=== PATIENT | female | born 1990 | race American Indian/Alaskan Native ===

== ENCOUNTER 2016-11-01 07:48 | Day surgery (SDC) | payer BC ==
[~2016-11-01 07:48] MED LIST: ANCEF/STERILE WATER 2 GM/20 ML IV NR
[2016-11-01] MEDS ORDERED: PEPCID PO NR (08:00)
[2016-11-01] MEDS ORDERED: LACTATED RINGERS 1,000 ML IV SCH (08:00)
[2016-11-01] MEDS ORDERED: VERSED IV NR (08:00)
--- NOTE | 2016-11-01 10:19 | Anesthesia Day of Surgery ---
Anesthesia Day of Surgery - Day of Surgery Patient Examined: Yes Patient H&P Reviewed: Yes Patient is NPO: Yes
--- NOTE | 2016-11-01 10:21 | Anesthesia Consultation ---
Anesthesia Consult and Med Hx Date of service: 11/01/16 - Airway Anesthetic Teeth Evaluation: Good ROM Head & Neck: Adequate Mental/Hyoid Distance: Adequate Mallampati Class: Class II Intubation Access Assessment: Probably Good - Pulmonary Exam CTA: Yes - Cardiac Exam Cardiac Exam: RRR - Pre-Operative Health Status ASA Pre-Surgery Classification: ASA2 Proposed Anesthetic Plan: General - Pulmonary Hx Smoking: No Hx Asthma: No - Cardiovascular System Hx Hypertension: No Hx Heart Attack/AMI: No - Central Nervous System Hx Seizures: No CVA: No - Gastrointestinal Hx Gastroesophageal Reflux Disease: Yes (occasional, food related, nexium sometimes) - Endocrine Hx Renal Disease: No Hx Liver Disease: No Hx Non-Insulin Dependent Diabetes: No - Hematic Hx Sickle Cell Disease: No - Other Systems Hx Obesity: Yes - Additional Comments Anesthesia Medical History Comments: NAC, no previous sx, had Endoscopy and epidural
[2016-11-01] MEDS ORDERED: NACL BACTERIOSTATIC INFILTRATI ONE (10:28)
[2016-11-01 10:56] LABS: Basophils % (Auto) 0.5 % (0.0-1.8); Eosinophils % (Auto) 0.6 % (0.0-4.3); Hemoglobin 13.5 gm/dl (10.1-14.3); Mean Corpuscular HGB Conc 33 % (30-34); Mean Corpuscular Hemoglobin 31 pg (28-32); Mean Corpuscular Volume 95 fl (79-97); Platelet Count 197 K/mm3 (140-440); Red Blood Count 4.33 M/mm3 (3.65-5.03); Red Cell Distribution Width 12.6 % (13.2-15.2); White Blood Count 4.4 K/mm3 (4.5-11.0)
[2016-11-01] MEDS ORDERED: TRANSDERM-SCOP TD NR (11:00)
[2016-11-01] MEDS ORDERED: PERCOCET 5/325 PO PRN (13:20)
[2016-11-01] MEDS ORDERED: ZOFRAN IV PRN (13:20)
[2016-11-01] MEDS ORDERED: DILAUDID ONE ×4 (14:16→17:52)
[2016-11-01] MEDS ORDERED: XYLOCAINE MPF 2% ONE (14:17)
[2016-11-01] MEDS ORDERED: DIPRIVAN 10 MG/ML IV ONE ×3 (14:17→15:19)
[2016-11-01] MEDS ORDERED: VERSED ONE (14:30)
[2016-11-01] MEDS ORDERED: BREVIBLOC IV ONE (14:50)
[2016-11-01] MEDS ORDERED: ROBINUL ONE (14:57)
[2016-11-01] MEDS ORDERED: DECADRON ONE (14:57)
[2016-11-01] MEDS ORDERED: ZOFRAN ONE (14:58)
[2016-11-01] MEDS ORDERED: NORMODYNE IV ONE (15:08)
[2016-11-01] MEDS ORDERED: NACL 0.9% IR ONE (15:20)
[2016-11-01] MEDS ORDERED: APRESOLINE ONE (15:21)
[2016-11-01] MEDS ORDERED: LACTATED RINGERS 1,000 ML ONE (15:34)
--- NOTE | 2016-11-01 18:00 | Post Anesthesia Evaluation ---
- Post Anesthesia Evaluation Patient Participated: Yes Airway Patent: Yes Stable Respiratory Function: Yes Nausea/Vomiting: No Temp > 96.8F: Yes Pain Manageable: Yes Adequeate Hydration: Yes Anesthesia Complications: No Block Receding Appropriately: Not Applicable Patient on Ventilator: No
[2016-11-01] MEDS: DILAUDID IV PRN ×2 (18:21→18:32)
[2016-11-01 21:39] VITALS: BP 124/76
--- NOTE | 2016-11-11 10:04 | Operative Report ---
SERVICE: Plastic Surgery. PREOPERATIVE DIAGNOSIS: Macromastia. POSTOPERATIVE DIAGNOSIS: Macromastia. PROCEDURE: Bilateral reduction mammoplasty. SURGEON: Brian Villela MD FOOTBALL SCOUT: True Bautista CSA DESCRIPTION OF PROCEDURE: The patient was brought to the operating room and placed on the table in supine position. Following administration of general anesthesia, bilateral breasts were prepped with a Betadine solution and draped in usual sterile manner. A #10 blade scalpel was used to make a circumareolar skin incision followed by de-epithelization of inferior dermal pedicle. Modified Michaels pattern skin markings were incised with scalpel, deepened through subcutaneous fat and breast tissue using electrocautery. Skin flaps were raised in standard manner as was the fashioning of an inferior central mound pedicle. Breasts tissue was resected and sent to pathology as specimen. Hemostasis controlled using electrocautery. Closure was performed over 10-mm Eliezer drain using interrupted and running subcuticular 2-0 Monocryl sutures. Mastisol, Steri-Strips, and sterile dressings applied. The patient tolerated the procedure well and returned to recovery in stable condition. JOB# [id number] FTW/NTS
== END 2016-11-01 19:45 | disposition home or self-care (01) ==
LOC: OR 07:48
PROVIDERS: ATTEND Plastic Surgery
DX: N60.32 Fibrosclerosis of left breast (principal); N60.31 Fibrosclerosis of right breast; K21.9 Gastro-esophageal reflux disease without esophagitis; E66.9 Obesity, unspecified; Z68.30 Body mass index [BMI] 30.0-30.9, adult; Z88.8 Allergy status to other drugs, medicaments and biological substances
CPT/HCPCS: 19318; 36415; 81025; 85025; 88305; J0360; J0690; J1170; J2250; J2405; J2704; J7120; 88307; J1100